=== PATIENT | female | born 2000 | race Caucasian/White ===

== ENCOUNTER 2024-02-19 19:53 | Emergency (ER) | payer OTHER, SELFPAY ==
[2024-02-19 19:54] VITALS: BP 140/75
--- NOTE | 2024-02-19 20:46 | ED.GENMED ---
History of Present Illness
General
Chief Complaint: Foreign Body Removal
Time Seen by Provider: 02/19/24 20:30
History of Present Illness
History of Present Illness:
23-year-old female presents to the emergency department for evaluation of a possible foreign body in the right foot. States that she had glass in the foot 2 weeks ago and a large piece was removed at urgent care however she has more pain at the area
now and she is concerned for a retained foreign body. Denies any new trauma. No redness or swelling at the site
Past History
Past History
ED Past Medical History: Psychiatric (Anxiety and depression); Negative Asthma, HTN, Hypercholesterolemia or NIDDM
ED Past Surgical History: Tonsilectomy (and adnoids) and Other ([place] teeth)
Social History
Tobacco: Non-smoker
Alcohol: None
Drug: None
Personal: Single
Living: with family
Review of Systems
Review of Systems
Allergies reviewed?: Yes
All Other Systems: ROS reviewed and negative except as documented in HPI and ROS
Phy Exam
Physical Exam
Physical Exam:
GEN: Well appearing, NAD, WDWN
HEENT: Oral mucosa moist, no scleral icterus
Cardiac: Regular rate
Lung: No respiratory distress, no tachypnea
MSK: No gross deformity or injuries
Skin: Good color, no pallor or jaundice, no rashes. Healed puncture wound to the plantar fifth MCP joint on the right, there is no swelling or erythema. No palpable firmness. Limited bedside ultrasound performed by myself is without visible
evidence for foreign body, There is some cobblestoning of the subcutaneous tissues
Neuro: AO x3, moves all extremities freely
Psych: Calm, cooperative
Course
Vital Signs
Initial and Last Documented VS:
Initial Vital Signs
Temp Pulse Resp BP Pulse Ox
97 F 67 16 140/75 99
02/19/24 19:54 02/19/24 19:54 02/19/24 19:54 02/19/24 19:54 02/19/24 19:54
Last Documented Vital Signs
Temp Pulse Resp BP Pulse Ox
97 F 67 16 140/75 99
02/19/24 19:54 02/19/24 19:54 02/19/24 19:54 02/19/24 19:54 02/19/24 19:54
MDM/Problems Addressed
MDM/Problems Addressed:
No visible evidence of foreign body, no indication to perform incision and exploration of the area. Does not appear clinically infected however given her increased pain and cobblestoning ultrasound will provide prescription for antibiotic should
symptoms worsen
*Critical Care Note
Total Time (30-74mins, 75-104mins- exclusive of procedures): Not Applicable
ED Attending Note
-
Portions of this chart may have been created with voice recognition software.� Occasional wrong word or��sound alike� substitutions may have occurred due to the inherent limitations of voice recognition software.
Discharge Plan
Departure
Patient Disposition: Home (Routine Discharge)
Date of Disposition: 02/19/24
Time of Disposition: 20:48
Patient with high blood pressure during this ER visit?: No
Discharge Problem:
Acute pain of right foot
Instructions: Foreign Body in Skin (DC)
Prescriptions:
New
cephalexin 500 mg capsule
500 mg PO Q8H 5 Days Qty: 15 0RF
No Action
ascorbic acid (vitamin C) 250 MG tablet,chewable
250 mg PO DAILY
montelukast 10 MG tablet
10 mg PO DAILY
lamotrigine 100 MG tablet
100 mg PO DAILY
spironolactone 50 MG tablet
50 mg PO DAILY
escitalopram oxalate 20 MG tablet
20 mg PO DAILY
ondansetron [Zofran ODT] 8 MG tablet,disintegrating
4 mg PO Q8HPRN PRN (Reason: nausea) Qty: 5 1RF
Activity Restrictions/Additional Instructions:
There is no obvious evidence for foreign body in the right foot on ultrasound. I prescribed you antibiotics however do not take these immediately, consider using the antibiotic if your foot becomes increasingly painful or more red/swollen. Please
perform warm water Epsom salt soaks 3 times daily for the next 5 to 7 days
Interventions
Interventions:
*Risk Screen - Suicide Last Done: 02/19/24 21:17
*General Assessment Last Done: 02/19/24 21:17
*Neglect/Abuse Screening Last Done: 02/19/24 21:17
ED- Fall Risk Assessment Last Done: 02/19/24 21:17
*ED COVID-19 Vaccine History Last Done: 02/19/24 21:17
*Nursing Disposition Last Done: 02/19/24 21:17
Discharge Date and Time
Discharge Date/Time: 02/19/24 21:19
Print Language: [id number]
== END 2024-02-19 21:19 | disposition home or self-care (01) ==
LOC: EMR 19:53
PROVIDERS: EMERGENCY PHYSICIAN Emergency Medicine; FAMILY PHYSICIAN Nurse Practitioner Family
DX: M79.671 Pain in right foot (principal); F41.8 Other specified anxiety disorders; E11.9 Type 2 diabetes mellitus without complications; F32.A Depression, unspecified; I10 Essential (primary) hypertension
CPT/HCPCS: 99282